=== PATIENT | female | born 1970 | race Caucasian/White ===

== ENCOUNTER 2017-12-07 21:28 | Emergency (ER) | payer MEDICARE, OTHER ==
[~2017-12-07 21:28] MED LIST: Iopamidol 370 76% 100 ML VIAL ONE
[2017-12-07] MEDS ORDERED: Fentanyl 100 MCG/2 ML VIAL ONE (21:54)
[2017-12-07 21:59] LABS: #Basophils 0.1 thou/uL (0.0-0.2); #Eosinphils 0.2 thou/uL (0.0-0.7); #Lymphocytes 3.6 thou/uL (1.20-3.40); #Monocytes 0.5 thou/uL (0.11-0.59); #Neutrophils 3.2 thou/uL (1.40-6.50); %Basophils 0.8 % (0.0-1.0); %Lymphocytes 48.1 % (21.0-51.0); %Monocytes 6.5 % (0.0-10.0); %Neutrophils 42.6 % (42.0-75.0); Hemoglobin 13.7 g/dL (12.0-16.0); Mean Corpuscular HGB CONC 36.3 g/dL (32.0-36.0); Mean Corpuscular Hemoglobin 32.2 pg (27.0-31.0); Mean Corpuscular Volume 88.8 fl (81.0-99.0); Platelet Count 236 thou/uL (130-400); RBC Distribution Width 11.1 % (11.5-14.5); Red Blood Cell (RBC) Count 4.26 mill/uL (4.20-5.40); White Blood Cell (WBC) Count 7.5 thou/uL (4.8-10.8)
[2017-12-07 22:12] LABS: ALT (SGPT) 45 U/L (8-55); AST (SGOT) 35 U/L (5-34); Albumin 4.3 g/dL (3.5-5.0); Alkaline Phosphatase 57 U/L (40-150); Anion Gap 14 mmol/L (10-20); BUN (Urea Nitrogen) 20 mg/dL (7.0-18.7); Bilirubin, Total 0.2 mg/dL (0.2-1.2); Calc. Creatinine Clearance 0 mL/min (70-130); Calcium 9.5 mg/dL (7.8-10.44); Carbon Dioxide 25 mmol/L (22-29); Chloride 104 mmol/L (98-107); Estimated GFR-MDRD 82; Globulin 3.8 g/dL (2.4-3.5); Glucose 97 mg/dL (70-105); Lipase 17 U/L (8-78); Potassium 3.8 mmol/L (3.5-5.1); Protein, Total 8.1 g/dL (6.0-8.3); Sodium 139 mmol/L (136-145)
[2017-12-07 22:13] LABS: CKMB 0.4 ng/mL (0-6.6); Troponin I Less than 0.010 ng/mL (< 0.028)
--- NOTE | 2017-12-07 22:16 | RAD ---
PORTABLE CHEST: 12/07/17 An AP portable film at 2130 is compared with a 11/13/17 study. The heart is normal in size and the hubert gs are clear. There is no infiltrate or effusion. The trachea is midline. There is a questionable sub centimeter nodular density in the right mid lung that may just be a prominent lung marking. This area was not really concerning on the 11/13/17 study done at [facility]. IMPRESSION: No definite acute findings. POS: HOME
--- NOTE | 2017-12-07 22:29 | CT ---
CT OF THE CERVICAL SPINE WITHOUT CONTRAST 12/07/[address] was done following trauma. Axial slices were acquired and coronal and sagittal recon structions were done. No fracture, dislocation, or disc space narrowing was seen. The C1 to dens distance is normal and the soft tissues are normal in thickness. There is no foraminal or central canal stenosis. At most, ther e may be some minor straightening of the cervical spine which could be due to muscle spasm. IMPRESSION: No acute bony abnormalities. POS: HOME
[2017-12-07] MEDS ORDERED: Ketorolac Tromethamine 30 MG/ML VIAL ONE (22:35)
--- NOTE | 2017-12-07 23:00 | CT ---
CT ABDOMEN AND PELVIS WITH CONTRAST 12/07/[address] of the abdomen and pelvis was performed following trauma. Axial slices were acquired, then coronal and sagittal reconstructions were done. Lung bases are clear except for some dependent atelectasis posteriorly. No fractures were appreciated in the visible ribs. The liver, spleen, pancreas, gallbladder, adrenal glands, kidneys, and abdominal aorta all appear nor mal. There was no sign of laceration or hematoma of any organ. The bowel shows no distention. There is no evidence of obstruction, free air, or free fluid. CT of the pelvis shows no pelvic masses, fluid collections, or inflammatory changes. The bony pelvis appears intact and the SI joints are symmetrical, as are the hips. No focal disc herniations are lumb ar fractures were seen. There is a Schmorl's node in the superior end plate of L5. IMPRESSION: No acute abdominal or pelvic findings. POS: HOME
== END 2017-12-07 22:47 | disposition home or self-care (01) ==
LOC: BURERS 21:28
DX: S30.811A Abrasion of abdominal wall, initial encounter (principal); I10 Essential (primary) hypertension; F41.9 Anxiety disorder, unspecified; F17.210 Nicotine dependence, cigarettes, uncomplicated; Z79.899 Other long term (current) drug therapy; V49.9XXA Car occupant (driver) (passenger) injured in unspecified traffic accident, initial encounter
CPT/HCPCS: 71045; 72125; 74177; 80053; 82553; 83605; 83690; 84484; 85025; 93005; 96374; 96375; G0390; J1885; J3010